=== PATIENT | male | born 1990 | race Caucasian/White ===

== ENCOUNTER 2022-01-06 10:55 | Emergency (ER) | payer OTHER ==
[2022-01-06 11:07] VITALS: BP 124/75; PULSE 85; RESP 17; TEMP 99.5; BMI 32.3
== END 2022-01-06 14:01 | disposition home or self-care (01) ==
LOC: JER 10:55
DX: R05.1 Acute cough (principal); J00 Acute nasopharyngitis [common cold]
CPT/HCPCS: 99282-25; C9803-CS; U0003; U0005